=== PATIENT | female | born 1990 | race Caucasian/White ===

== ENCOUNTER 2018-02-01 10:24 | Emergency (ER) | payer SELFPAY ==
--- NOTE | 2018-02-01 11:55 | ER ---
Nurse's Notes [facility] Name: Elle Ortega Age: 27 yrs Sex: Female : 1990 Arrival Date: 02/01/2018 Time: 10:27 Bed 11 Private MD: Diagnosis: Acute tonsillitis Presentation: 02/01 10:32 Presenting complaint: Patient states: Sore throat and purulent drainage that started sg yesterday, reports pain 10/10 in throat worsens with swallowing, denies fever/n/v/d. Transition of care: patient was not received from another setting of care. Onset of symptoms was January 31, 2018. Risk Assessment: Do you want to hurt yourself or someone else? Patient reports no desire to harm self or others. Initial Sepsis Screen: Does the patient meet any 2 criteria? No. Patient's initial sepsis screen is negative. Does the patient have a suspected source of infection? No. Patient's initial sepsis screen is negative. Care prior to arrival: None. 10:32 Method Of Arrival: Ambulatory sg 10:32 Acuity: CARRIE 4 sg DIRECTOR OF RETAIL MARKETING: 10:30 LMP 01/19/2018 sg Historical: - Allergies: 10:34 Septra; sg - Home Meds: 10:34 None [Active]; sg - PMHx: 10:34 None; sg - PSHx: 10:34 Tonsillectomy; Adenoids; sg 10:34 Tubal ligation; sg - Immunization history:: Adult Immunizations up to date. - Social history:: Smoking status: Patient uses tobacco products, vape. - Ebola Screening: : Patient negative for fever greater than or equal to 101.5 degrees Fahrenheit, and additional compatible Ebola Virus Disease symptoms Patient denies exposure to infectious person Patient denies travel to an Ebola-affected area in the 21 days before illness onset No symptoms or risks identified at this time. - Family history:: not pertinent. - Hospitalizations: : No recent hospitalization is reported. Screenin:45 Abuse screen: Denies threats or abuse. Denies injuries from another. Nutritional sg screening: No deficits noted. Tuberculosis screening: No symptoms or risk factors identified. Never had TB. Fall Risk None identified. Assessment: 10:45 General: Appears in no apparent distress. distressed, comfortable, Behavior is calm, sg cooperative, appropriate for age. Pain: Complains of pain in sore throat Quality of pain is described as aching. Neuro: No deficits noted. Cardiovascular: Denies chest pain, diaphoresis, fatigue, lightheadedness, nausea, palpitations, shortness of breath, syncope, vomiting, Capillary refill is brisk in bilateral fingers Patient's skin is warm and dry. Chest pain is denied. Respiratory: Airway is patent Respiratory effort is even, unlabored, Respiratory pattern is regular, symmetrical, Breath sounds are clear. GI: No signs and/or symptoms were reported involving the gastrointestinal system. : No signs and/or symptoms were reported regarding the genitourinary system. EENT: Oral mucosa is moist. Throat is reddened Reports pain when swallowing. Derm: Skin is intact, is healthy with good turgor, Skin is dry, Skin is pale, Skin temperature is warm. Musculoskeletal: No signs and/or symptoms reported regarding the musculoskeletal system. Vital Signs: 10:30 Resp 16; Temp 98.1; Weight 58.97 kg (R); Height 5 ft. 1 in. (154.94 cm) (R); Pain 10/10;sg 10:33 BP 94 / 70; Pulse 82; Pulse Ox 100% on R/A; sg 10:30 Body Mass Index 24.56 (58.97 kg, 154.94 cm) sg ED Course: 10:27 Patient arrived in ED. sg 10:32 Arm band placed on. sg 10:33 Triage completed. sg 10:36 Alvaro Jackson MD is Attending Physician. rn 10:40 Patient has correct armband on for positive identification. Call light in reach. pt sg sitting in exam room recliner at this time. Pulse ox on. NIBP on. 10:55 Strep swab sent to lab. sg 11:00 Brayden Preston RN is Primary Nurse. sg 12:20 No provider procedures requiring assistance completed. Patient did not have IV access ss during this emergency room visit. Administered Medications: No medications were administered Outcome: 11:54 Discharge ordered by . rn 12:20 Discharged to home ambulatory. ss 12:20 Condition: good 12:20 Discharge instructions given to patient, Instructed on discharge instructions, follow up and referral plans. medication usage, Demonstrated understanding of instructions. 12:20 Patient left the ED. ss Signatures: Brayden Preston RN RN Jackson, Alvaro, MD MD rn Smirch, Jessica, RN RN ss
--- NOTE | 2018-02-01 11:55 | EDPHYS ---
Physician Documentation [facility] Name: Elle Ortega Age: 27 yrs Sex: Female : 1990 Arrival Date: 02/01/2018 Time: 10:27 Bed 11 Private MD: ED Physician Alvaro Jackson HPI: 02/01 10:42 This 27 yrs old Female presents to ER via Ambulatory with complaints of sore rn throat. 10:42 The patient presents with sore throat. The patient describes throat pain as rn intermittent, raw. Onset: The symptoms/episode began/occurred yesterday. Severity of symptoms: At their worst the symptoms were mild, in the emergency department the symptoms are unchanged. Associated signs and symptoms: Pertinent positives: fever, Pertinent negatives cough, shortness of breath. The patient has experienced a previous episode. The patient has not recently seen a physician. RN NEUROSURGICAL: 10:30 LMP 01/19/2018 sg Historical: - Allergies: 10:34 Septra; sg - Home Meds: 10:34 None [Active]; sg - PMHx: 10:34 None; sg - PSHx: 10:34 Tonsillectomy; Adenoids; sg 10:34 Tubal ligation; sg - Immunization history:: Adult Immunizations up to date. - Social history:: Smoking status: Patient uses tobacco products, vape. - Ebola Screening: : Patient negative for fever greater than or equal to 101.5 degrees Fahrenheit, and additional compatible Ebola Virus Disease symptoms Patient denies exposure to infectious person Patient denies travel to an Ebola-affected area in the 21 days before illness onset No symptoms or risks identified at this time. - Family history:: not pertinent. - Hospitalizations: : No recent hospitalization is reported. 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 Exam: 10:42 Constitutional: This is a well developed, well nourished patient who is awake, alert, rn and in no acute distress. ENT: + pharyngeal erythema, + exudate, no stridor Neck: tender neck LAD Neuro: Awake and alert, GCS 15, oriented to person, place, time, and situation. Cranial nerves II-XII grossly intact. Motor strength 5/5 in all extremities. Sensory grossly intact. Cerebellar exam normal. Normal gait. Vital Signs: 10:30 Resp 16; Temp 98.1; Weight 58.97 kg (R); Height 5 ft. 1 in. (154.94 cm) (R); Pain 10/10;sg 10:33 BP 94 / 70; Pulse 82; Pulse Ox 100% on R/A; sg 10:30 Body Mass Index 24.56 (58.97 kg, 154.94 cm) sg MDM: 10:36 Patient medically screened. rn 11:53 Differential diagnosis: group A strep tonsillitis, laryngitis, pharyngitis, rn tonsillitis, upper respiratory infection, viral syndrome. Data reviewed: vital signs, nurses notes, lab test result(s), and as a result, I will discharge patient. Counseling: I had a detailed discussion with the patient and/or guardian regarding: the historical points, exam findings, and any diagnostic results supporting the discharge/admit diagnosis, lab results, the need for outpatient follow up, to return to the emergency department if symptoms worsen or persist or if there are any questions or concerns that arise at home. Special discussion: I discussed with the patient/guardian in detail that at this point there is no indication for admission to the hospital. It is understood, however, that if the symptoms persist or worsen the patient needs to return immediately for re-evaluation. 02/01 10:42 Order name: Strep; Complete Time: 11:53 rn 02/01 12:02 Order name: Throat Culture EDMS Administered Medications: No medications were administered Disposition: 02/01/18 11:54 Discharged to Home. Impression: Acute tonsillitis. - Condition is Stable. - Discharge Instructions: Tonsillitis. - Prescriptions for Augmentin 875- 125 mg Oral Tablet - take 1 tablet by ORAL route every 12 hours for 10 days; 20 tablet. - Work release form, Medication Reconciliation Form, Thank You Letter, Antibiotic Education, Prescription Opioid Use form. - Follow up: Private Physician; When: As needed; Reason: Recheck today's complaints, Re-evaluation by your physician. - Problem is new. - Symptoms have improved. Signatures: Dispatcher [employer] EDBrayden Blankenship RN Alvaro Heredia MD MD rn Smirch, Shelby, RN RN ss Corrections: (The following items were deleted from the chart) 12:20 11:54 02/01/2018 11:54 Discharged to Home. Impression: Acute tonsillitis. Condition is ss Stable. Forms are Medication Reconciliation Form, Thank You Letter, Antibiotic Education, Prescription Opioid Use. Follow up: Private Physician; When: As needed; Reason: Recheck today's complaints, Re-evaluation by your physician. Problem is new. Symptoms have improved. rn
== END 2018-02-01 12:20 | disposition home or self-care (01) ==
LOC: ER 10:24
DX: J03.90 Acute tonsillitis, unspecified (principal); F17.290 Nicotine dependence, other tobacco product, uncomplicated
CPT/HCPCS: 87070; 87081; 99283